=== PATIENT | female | born 1950 | race Caucasian/White ===

== ENCOUNTER → 2018-02-22 08:42 | Outpatient (CLI) | payer MEDICARE, SELFPAY ==
[2018-02-22 09:46] LABS: Absolute Lymphocyte Count 1.63 X10^3/ul (0.83-4.51); Absolute Neutrophil Count 5.2 X10^3/uL (2.0-7.7); Basophil# 0.02 X10^3/uL; Basophil% 0.3 % (0-1); Eosinophil# 0.11 X10^3/uL; Eosinophils% 1.5 % (0-5); Hematocrit 45.3 % (37-47); Hemoglobin 14.6 g/dl (12.0-15.0); Lymphocyte # 1.63 X10^3/ul (4.0); Lymphocyte % 22.2 % (19-41); Mean Corp Hgb Conc 32.2 g/gl (32-36); Mean Corpuscular Hgb 29.1 pg (27.0-32.0); Mean Corpuscular Volume 90.2 fL (81-99); Mean Platelet Vol. 11.9 fl (6.2-12.0); Monocyte# 0.32 X10^3/uL; Monocyte% 4.4 % (0-10); Neutrophil # 5.23 X10^3/uL (2.7-7.7); Neutrophil % 71.3 % (47-70); Platelet Count 186 K/mm3 (150-450); RBC Distribution Width CV 15.1 % (11.6-14.6); RBC Distribution Width SD 49.2 fl (35.1-43.9); Red Blood Count 5.02 M/mm3 (4.2-5.4); White Blood Count 7.3 K/mm3 (4.4-11.0)
[2018-02-22 09:49] LABS: POSITIVE COUNT NO; POSITIVE DIFFERENTIAL NO; POSITIVE MORPHOLOGY NO
[2018-02-22 10:13] LABS: ALB/GLOB Ratio 0.8 RATIO (0.9-2.4); AST(SGOT) 14 U/L (15-37); Alanine Aminotransfer ALT/SGPT 16 U/L (13-56); Albumin, Serum 3.3 g/dL (3.2-5.0); Alkaline Phosphatase 108 U/L (45-117); Anion Gap 6 (5-15); BUN 8 mg/dL (7-18); BUN/Creat Ratio 8.8 RATIO (10-20); Calcium,Total 9.2 mg/dL (8.5-10.1); Chloride 106 mmol/L (98-107); EST Glomerular Filtration Rate 66 mL/min (>60); Est Glom Filt Rate - Afr Amer 79 mL/min (>60); Globulin 3.9 g/dL (2.2-4.2); Glucose 99 mg/dL (74-106); Potassium 3.9 mmol/L (3.5-5.1); Protein, Total 7.2 g/dL (6.4-8.2); Sodium Level 142 mmol/L (136-145)
== END ==
PROVIDERS: Family Provider Family Medicine; PCP Family Medicine; Referring Provider Family Medicine; Visit Provider Family Medicine
DX: Z00.01 Encounter for general adult medical examination with abnormal findings (principal); I10 Essential (primary) hypertension
CPT/HCPCS: 36415; 80053; 85025

== ENCOUNTER → 2018-02-28 12:38 | Outpatient (CLI) | payer MEDICARE, SELFPAY ==
--- NOTE | 2018-02-28 12:44 | CT_ITS ---
HISTORY: CURRENT SMOKER/1PPD X 50 YR, No hx cancer,diabetes or prev chest surgeries TECHNIQUE: Helically acquired images were obtained of the chest. Low-dose technique. A radiation dose optimization technique was used for this scan. IV Contrast dosage and agent: None. COMPARISON: None FINDINGS: Low-dose technique. Bilateral widespread centrilobular emphysema with upper lobe predominance. No acute infiltrate. Left upper lobe tiny calcified granulomas. Calcified lymph nodes at the prevascular and left hilar regions compatible with old granulomatous disease. No suspicious pulmonary nodule or dominant lesion. No pleural effusion or significant pleural disease. Enlarged central pulmonary arteries compatible with pulmonary hypertension. The pulmonary artery trunk measures 3.3 cm in diameter. No pericardial effusion. CT/Low Dose CT Lung Screening IMPRESSION: 1. No acute disease or suspicious lesion. 2. Chronic lung disease with centrilobular emphysema and old, healed granulomatous disease. 3. Probable pulmonary hypertension. 4. Recommend continued surveillance with follow-up low-dose CT chest exam in 1 year. Lung RADS: 2: Benign findings. Individualized dose optimization techniques were used for this CT. at 0103 Reported and signed by: Michael Lagos MD Electronically Signed: Michael Lagos, at 1:01 EDT Tel , Service support ,
== END ==
PROVIDERS: Family Provider Family Medicine; PCP Family Medicine; Visit Provider Family Medicine
DX: Z12.2 Encounter for screening for malignant neoplasm of respiratory organs (principal); Z87.891 Personal history of nicotine dependence
CPT/HCPCS: G0297

== ENCOUNTER → 2018-03-28 12:24 | Outpatient (CLI) | payer MEDICARE, SELFPAY ==
--- NOTE | 2018-03-28 12:27 | BI_ITS ---
MAMMOGRAPHY - BILATERAL SCREENING REASON FOR EXAM: Female, 67 years old. Routine annual screening examination. PERTINENT HISTORY: Remote left stereotactic breast biopsy. TECHNIQUE: Digital bilateral breast ranjit (3D mammographic acquisition) in the CC and MLO projections. 2-D mediolateral oblique (MLO) and craniocaudad (CC) views of both breasts were obtained. CAD: Full Field Digital Mammography with Computer Added Detection was performed. COMPARISON: Comparison is made with prior study dated July 06, 2016 and May 27, 2014. FINDINGS: Breast Composition: There are scattered areas of fibroglandular density. There are no dominant masses or suspicious calcifications. A tissue clip marker is once again seen in the deep upper lateral portion of the left breast. No other significant abnormalities are identified. There has been no significant change since the prior study. BI/SCREENING MAMM (CAD), BILAT IMPRESSION: Stable bilateral screening mammogram. Yearly follow-up mammogram recommended. (A) ASSESSMENT CATEGORY: BIRADS Category 2: Benign. A letter regarding these results will be sent to the patient by the facility within 30 days. Approximately 10% of breast cancers are not detected by mammography. A normal mammogram should not delay biopsy of a clinically suspicious abnormality. [id number] Electronically Signed: Paul Lombardi MD at 13:50 EST Tel [phone], Service support ,
--- OUTSIDE RECORDS SUMMARY | 2018-05-23 11:00 | XMS RPT_ITS ---
:1950 Author Organization OHIP Care Team Providers Name Role Phone Branden Ulrich Attending Unavailable Branden Ulirch Referring Unavailable Sam Troy Primary Care Unavailable Branden Ulrich Attending Unavailable Branden Ulrich Primary Care Unavailable Branden Ulrich Attending Unavailable Branden Ulrich Referring Unavailable Branden Ulrich Primary Care Unavailable PROBLEMS PROBLEMS DATE TYPE CONDITION / CODE ATTENDING STATUS SOURCE 03/05/2018 Unknown Z12.2 - Encounter Branden Ulrich for screening for [facility] organs / Z12.2(ICD-10) 02/22/2018 Unknown Z00.01 - Encounter Branden Ulrich for general adult [facility] examination with Repository abnormal findings / Z00.01(ICD-10) 02/22/2018 Unknown I10 - Essential Branden Ulrich (primary) [facility] hypertension / Hospital I10(ICD-10) Repository PROCEDURES PROCEDURES No Procedure Records FoundRESULTS RESULTS SCREENING MAMM (CAD), Observed: 03/28/2018 Status: F Source: [place] 12:27 PM [facility] REPOSITORY [facility] Imaging Services [address] [place] [address] SCREENING MAMM (CAD), BILAT MR#: [id number] Acct: [id number] Name: JAGUAR GALAN Rep #: [id number] : 1950 F 67 From: Paul Lombardi MD PCP: Branden Ulrich DO Status: REG CLI Study: SCREENING MAMM (CAD), BILAT Date of Exam: 03/28/18 Exam# [id number] Ordering Dr: Branden Ulrich DO MAMMOGRAPHY - BILATERAL SCREENING REASON FOR EXAM: Female, 67 years old. Routine annual screening examination. PERTINENT HISTORY: Remote left stereotactic breast biopsy. TECHNIQUE: Digital bilateral breast ranjit (3D mammographic acquisition) in the CC and MLO projections. 2-D mediolateral oblique (MLO) and craniocaudad (CC) views of both breasts were obtained. CAD: Full Field Digital Mammography with Computer Added Detection was performed. COMPARISON: Comparison is made with prior study dated July 06, 2016 and May 27, 2014. FINDINGS: Breast Composition: There are scattered areas of fibroglandular density. There are no dominant masses or suspicious calcifications. A tissue clip marker is once again seen in the deep upper lateral portion of the left breast. No other significant abnormalities are identified. There has been no significant change since the prior study. BI/SCREENING MAMM (CAD), BILAT IMPRESSION: Stable bilateral screening mammogram. Yearly follow-up mammogram recommended. (A) ASSESSMENT CATEGORY: BIRADS Category 2: Benign. A letter regarding these results will be sent to the patient by the facility within 30 days. Approximately 10% of breast cancers are not detected by mammography. A normal mammogram should not delay biopsy of a clinically suspicious abnormality. [id number] Electronically Signed: Paul Lombardi MD at 13:50 EST Tel [phone], Service support , CC: Branden Ulrich DO [employer] Service Manager: Signed LOW DOSE CT LUNG Observed: 02/28/2018 Status: F Source: [place] SCREENING 12:44 PM [facility] REPOSITORY [facility] Imaging Services [address] [place] [address] Lung Screening MR#: [id number] Acct: [id number] Name: JAGUAR GALAN Rep #: [id number] : 1950 F 67 From: Michael Lagos MD PCP: Branden Ulrich DO Status: REG CLI Study: Low Dose CT Lung Screening Date of Exam: 02/28/18 Exam# [id number] Ordering Dr: Branden Ulrich DO HISTORY: CURRENT SMOKER/1PPD X 50 YR, No hx cancer,diabetes or prev chest surgeries TECHNIQUE: Helically acquired images were obtained of the chest. Low- dose technique. A radiation dose optimization technique was used for this scan. IV Contrast dosage and agent: None. COMPARISON: None FINDINGS: Low-dose technique. Bilateral widespread centrilobular emphysema with upper lobe predominance. No acute infiltrate. Left upper lobe tiny calcified granulomas. Calcified lymph nodes at the prevascular and left hilar regions compatible with old granulomatous disease. No suspicious pulmonary nodule or dominant lesion. No pleural effusion or significant pleural disease. Enlarged central pulmonary arteries compatible with pulmonary hypertension. The pulmonary artery trunk measures 3.3 cm in diameter. No pericardial effusion. CT/Low Dose CT Lung Screening IMPRESSION: 1. No acute disease or suspicious lesion. 2. Chronic lung disease with centrilobular emphysema and old, healed granulomatous disease. 3. Probable pulmonary hypertension. 4. Recommend continued surveillance with follow-up low-dose CT chest exam in 1 year. Lung RADS: 2: Benign findings. Individualized dose optimization techniques were used for this CT. at 0103 Reported and signed by: Michael Lagos MD Electronically Signed: Michael Lagos, at 1:01 EDT Tel , Service support , CC: Branden Ulrich DO [employer] Dietary Service Manager: Signed CBC W/DIFF, AUTOMATED Collected: 02/22/2018 Status: F Source: [place] 9:09 AM [facility] REPOSITORY TYPE CODE TESTS RESULT OUT OF RANGE REFERENCE UNITS LAB L100.1000 4.4-11.0 K/mm3 Normal WBC 7.3 LAB L100.1200 4.2-5.4 M/mm3 Normal RBC 5.02 LAB L100.1300 12.0-15.0 g/dl Normal HGB 14.6 LAB L100.1400 37-47 % Normal HCT 45.3 LAB L100.1500 81-99 fL Normal MCV 90.2 LAB L100.1600 27.0-32.0 pg Normal MCH 29.1 LAB L100.1700 32-36 g/gl Normal MCHC 32.2 LAB L100.1810 11.6-14.6 % High RDW CV 15.1 LAB L100.1820 35.1-43.9 fl High RDW SD 49.2 LAB L100.1900 150-450 K/mm3 Normal PLT 186 LAB L100.2000 6.2-12.0 fl Normal MPV 11.9 LAB L100.2100 47-70 % High NEUT% 71.3 LAB L100.2200 19-41 % Normal LY% 22.2 LAB L100.2300 0-10 % Normal MONO% 4.4 LAB L100.2400 0-5 % Normal EO% 1.5 LAB L100.2500 0-1 % Normal BASO% 0.3 LAB L100.2550 0.0-0.9 % Normal IM GRAN % 0.300 Result Comment: IG% - Immature Granulocytes (promyelocytes, myelocytes and metamyelocytes) > 1% indicates that a LEFT SHIFT is Present. LAB L100.2620 2.0-7.7 X10 3/uL Normal Absolute Neut 5.2 LAB L100.2720 0.83-4.51 X10 3/ul Normal Absolute Lymph 1.63 Performed By: #### L100.0100 #### [facility] [address] [place], [address] COMPREHENSIVE METABOLIC Collected: 02/22/2018 Status: F Source: [facility] 9:09 AM [facility] REPOSITORY TYPE CODE TESTS RESULT OUT OF RANGE REFERENCE UNITS LAB L501.0100 74-106 mg/dL Normal GLU 99 Result Comment: Please note revised GLUCOSE reference range effective 2017. LAB L501.1000 7-18 mg/dL Normal BUN 8 LAB L501.1100 0.55-1.02 mg/dL Normal CREAT,SERUM 0.90 Result Comment: The validity of the calculated GFR AND GFRAA in patients over 70 years has not been determined. Clinical correlation is essential. LAB L501.1110 >60 mL/min Normal EST GFR 66 Result Comment: Non- GFR Calc LAB L501.1115 >60 mL/min Normal EST GFR - AA 79 Result Comment: GFR Calc LAB L501.1300 10-20 RATIO Low BUN/CRE 8.8 LAB L501.1500 6.4-8.2 g/dL Normal T PROT 7.2 LAB L501.1800 3.2-5.0 g/dL Normal ALB 3.3 LAB L501.1950 2.2-4.2 g/dL Normal GLOB 3.9 LAB L501.2000 0.9-2.4 RATIO Low A/G 0.8 LAB L501.2200 8.5-10.1 mg/dL Normal CA 9.2 LAB L501.4100 15-37 U/L Low AST 14 LAB L501.4305 45-117 U/L Normal ALK P 108 LAB L501.4405 13-56 U/L Normal ALT 16 LAB L501.4600 0.20-1.00 mg/dL Normal T BILI 0.50 LAB L501.5300 136-145 mmol/L Normal NA 142 LAB L501.5600 3.5-5.1 mmol/L Normal K 3.9 LAB L501.5900 98-107 mmol/L Normal CL 106 LAB L501.6100 21.0-32.0 mmol/L Normal CO2 30.0 LAB L501.6200 5-15 Normal GAP 6 Performed By: #### L500.4050 #### [facility] [address] [place], [place], [address] ALLERGIES ALLERGIES No Allergies Records FoundENCOUNTERS ENCOUNTERS ADMIT/DISCHARGE ACCOUNT ADMITTING ENCOUNTER LOCATION SOURCE NUMBER CLASS 03/28/2018 [id number] [facility] 9 [facility] ing:OPBI Repository 02/28/2018 [id number] [facility] 4 [facility] ing:CT Repository 02/22/2018 [id number] [facility] 2 [facility] ing:LAB Repository PAYERS PAYERS ENCOUNTER GUARANTOR PAYER SUBSCRIBER SOURCE 03/28/2018 VERONICA Caldwell Primary JAGUAR Caldwell Dom [id number] Insurance:HUMANA [place]: Community [employer] [facility] [id number] Number: Repository [address]Jez: 330 [id number] [phone] (HP) Date:[id number] [address] [address]VI: 03/28/2018 Secondary NOT GIVENUNK [place] Insurance:SELF PAY [facility] Number: Effective Repository Date:2018-02-14 02/28/2018 VERONICA Caldwell Primary JAGUAR Caldwell [place] [id number] Insurance:HUMANA [place]: Community [employer] [facility] [id number] Number: Repository [address]Jkt: 330 [id number] [phone] (HP) Date:4704-29-89[place] [address]WP: 02/28/2018 Secondary NOT GIVENUNK [place] Insurance:SELF PAY [facility] Number: Effective Repository Date:2018-02-14 02/22/2018 VERONICA Caldwell Dom [id number] Insurance:HUMANA [place]: Community [employer] [id number] [place] Number: Repository [address]Byh: 330 [id number] [phone] (HP) Date:2375-53-56US [address] [address]TQ: 02/22/2018 Secondary NOT GIVENUNK Dom Insurance:SELF PAY [facility] Number: Effective Repository Date:2018-02-22
== END ==
PROVIDERS: Family Provider Family Medicine; PCP Family Medicine; Referring Provider Family Medicine; Visit Provider Family Medicine
DX: Z12.31 Encounter for screening mammogram for malignant neoplasm of breast (principal)
CPT/HCPCS: 77063; 77067

== ENCOUNTER → 2019-02-27 07:49 | Outpatient (CLI) | payer MEDICARE, SELFPAY ==
[2019-02-27 08:10] LABS: Absolute Lymphocyte Count 1.76 X10^3/uL (0.83-4.51); Absolute Neutrophil Count 5.3 X10^3/uL (2.0-7.7); Basophil# 0.05 X10^3/uL; Basophil% 0.6 % (0-1); Eosinophil# 0.27 X10^3/uL; Eosinophils% 3.4 % (0-5); Hematocrit 46.7 % (37-47); Lymphocyte # 1.76 X10^3/ul (4.0); Lymphocyte % 22.2 % (19-41); Mean Corp Hgb Conc 32.1 g/dL (32-36); Mean Corpuscular Hgb 28.9 pg (27.0-32.0); Mean Platelet Vol. 11.7 fl (6.2-12.0); Monocyte# 0.51 X10^3/uL; Monocyte% 6.4 % (0-10); NRBC Flagged by Analyzer 0 % (0-5); Neutrophil # 5.31 X10^3/uL (2.7-7.7); Neutrophil % 66.9 % (47-70); Platelet Count 187 K/mm3 (150-450); RBC Distribution Width CV 14.5 % (11.6-14.6); RBC Distribution Width SD 47.6 fl (35.1-43.9); Red Blood Count 5.19 M/mm3 (4.2-5.4); White Blood Count 7.9 K/mm3 (4.4-11.0)
[2019-02-27 08:46] LABS: ALB/GLOB Ratio 0.9 RATIO (0.9-2.4); AST(SGOT) 13 U/L (15-37); Alanine Aminotransfer ALT/SGPT 15 U/L (13-56); Albumin, Serum 3.4 g/dL (3.2-5.0); Alkaline Phosphatase 104 U/L (45-117); Anion Gap 6 (5-15); BUN 18 mg/dL (7-18); BUN/Creat Ratio 18.8 RATIO (10-20); Calcium,Total 8.9 mg/dL (8.5-10.1); Chloride 106 mmol/L (98-107); Cholesterol 166 mg/dL (200); Creatinine, Serum 0.96 mg/dL (0.55-1.02); EST Glomerular Filtration Rate 61 mL/min (>60); Est Glom Filt Rate - Afr Amer 74 mL/min (>60); Globulin 3.9 g/dL (2.2-4.2); Glucose 104 mg/dL (74-106); High Density Lipoprotein 46 mg/dL; Potassium 3.7 mmol/L (3.5-5.1); Protein, Total 7.3 g/dL (6.4-8.2); Sodium Level 140 mmol/L (136-145); Triglycerides 95 mg/dL; Very Low Density Lipoprotein 19 mg/dL (5-40)
== END ==
PROVIDERS: Family Provider Family Medicine; PCP Family Medicine; Referring Provider Family Medicine; Visit Provider Family Medicine
DX: I10 Essential (primary) hypertension (principal); I77.9 Disorder of arteries and arterioles, unspecified
CPT/HCPCS: 36415; 80053; 80061; 85025

== ENCOUNTER → 2020-10-05 08:43 | Outpatient (CLI) | payer MEDICARE, SELFPAY ==
--- NOTE | 2020-10-05 08:48 | VDLE_ITS ---
Reason For Study: BLE EDEMA RIGHT LEFT CFV is compressible, spontaneous, phasic, CFV is compressible, spontaneous, phasic, competent and demonstrates normal competent, and demonstrates normal augmentation. augmentation. FV is compressible, spontaneous, phasic, FV is compressible, spontaneous, phasic, competent and demonstrates normal competent and demonstrates normal augmentation. augmentation. POP V is compressible, spontaneous, phasic, POP V is compressible, spontaneous, phasic, competent and demonstrates normal competent and demonstrates normal augmentation. augmentation. T/P Trunk is compressible. T/P Trunk is compressible. PTV is compressible. PTV is compressible. RT PerV is compressible. LT PerV is compressible. SFJ is competent and measures 0.75 X 0.84 cm. SFJ is competent and measures 0.46 X 0.66 cm. GSV proximal thigh measures 0.67 X 0.72 cm. GSV proximal thigh measures 0.51 X 0.56 cm. GSV at knee measures 0.57 X 0.50 cm. GSV at knee measures 0.42 X 0.62 cm. GSV is competent throughout. GSV is competent throughout. SSV proximal calf is competent and measures SSV proximal calf is competent and measures 0.45 X 0.45 cm. 0.44 X 0.43 cm. Procedure This is a venous duplex using B-mode, color flow and spectral Doppler. Exam performed in department. The study was technically difficult. VL/Venous Duplex US - Atul Extrem Interpretation Summary Deep veins of the lower extremities are bilaterally patent and compressible seg mentally. There is no evidence of deep vein thrombosis on either side. Valvular competence appears in tact within the proximal deep venous systems bilaterally. The great saphenous veins appear bila terally patent and compressible segmentally. Sapheno-femoral junctions are bilaterally competent . Valvular competence appears to be intact segmentally within the great saphenous veins bilaterally. Small saphenous veins are patent and competent bilaterally. Ordering Physician: Branden Ulrich Referring Physician: Branden Ulrich Performed By: Donovan BLOCK RD, Kelly and Student
== END ==
PROVIDERS: PCP Family Medicine; Referring Provider Family Medicine; Visit Provider Family Medicine
DX: R60.0 Localized edema (principal); I87.2 Venous insufficiency (chronic) (peripheral)
CPT/HCPCS: 93970

== ENCOUNTER → 2021-12-28 | Outpatient (CLI) | payer MEDICARE, SELFPAY ==
[2021-12-28 12:08] LABS: Absolute Lymphocyte Count 1.39 X10^3/uL (0.83-4.51); Absolute Neutrophil Count 7.2 X10^3/uL (2.0-7.7); Basophil# 0.03 X10^3/uL; Basophil% 0.3 % (0-1); Eosinophils% 1.1 % (0-5); Hematocrit 46.7 % (37-47); Lymphocyte # 1.39 X10^3/ul (0.83-4.51); Lymphocyte % 15.2 % (19-41); Mean Corp Hgb Conc 32.1 g/dL (32-36); Mean Corpuscular Hgb 28.8 pg (27.0-32.0); Mean Corpuscular Volume 89.6 fL (81-99); Mean Platelet Vol. 12.2 fl (6.2-12.0); Monocyte# 0.37 X10^3/uL; NRBC Flagged by Analyzer 0 % (0-5); Neutrophil # 7.22 X10^3/uL (2.7-7.7); Neutrophil % 78.9 % (47-70); Platelet Count 223 K/mm3 (150-450); RBC Distribution Width CV 14.6 % (11.6-14.6); RBC Distribution Width SD 47.5 fl (35.1-43.9); Red Blood Count 5.21 M/mm3 (4.2-5.4); White Blood Count 9.2 K/mm3 (4.4-11.0)
[2021-12-28 12:14] LABS: Color, Urine Yellow (Yellow); Glucose, Dipstick Normal (Normal); Ketone-Dipstick Negative (Negative); Leukocyte Esterase-Dipstick Negative /ul (Negative); Nitrite-Dipstick Negative (Negative); Occult Blood-Urine Negative /ul (Negative); Protein-Dipstick Negative (Negative); Urine Bilirubin Dipstick Negative (Negative); Urine Clarity Sl. Cloudy (Clear); Urine Urobilinogen Normal (Normal); Urine pH 6.5 (5.0 - 8.0)
[2021-12-28 12:28] LABS: ALB/GLOB Ratio 0.7 RATIO (0.9-2.4); AST(SGOT) 12 U/L (15-37); Alanine Aminotransfer ALT/SGPT 16 U/L (13-56); Albumin, Serum 3.2 g/dL (3.2-5.0); Alkaline Phosphatase 105 U/L (45-117); Anion Gap 7 (5-15); BUN 11 mg/dL (7-18); BUN/Creat Ratio 10.4 RATIO (10-20); Chloride 105 mmol/L (98-107); Cholesterol 157 mg/dL (200); Creatinine, Serum 1.06 mg/dL (0.55-1.02); EST Glomerular Filtration Rate 54 mL/min (>60); Est Glom Filt Rate - Afr Amer 65 mL/min (>60); Globulin 4.4 g/dL (2.2-4.2); Glucose 109 mg/dL (74-106); High Density Lipoprotein 49 mg/dL; Potassium 3.6 mmol/L (3.5-5.1); Protein, Total 7.6 g/dL (6.4-8.2); Sodium Level 142 mmol/L (136-145); Triglycerides 98 mg/dL; Very Low Density Lipoprotein 20 mg/dL (5-40)
[2021-12-28 12:35] LABS: Hemoglobin A1c 5.9 % (3.8-5.6)
[2021-12-28 12:41] LABS: BNP,B-Type NATRIURETIC PEPTIDE 39.3 pg/mL (0-100)
== END | disposition home or self-care (01) ==
LOC: MTLAB 09:24
PROVIDERS: PCP Family Medicine; Referring Provider Family Medicine; Visit Provider Family Medicine
DX: R60.9 Edema, unspecified (principal); I10 Essential (primary) hypertension; I65.29 Occlusion and stenosis of unspecified carotid artery; R73.01 Impaired fasting glucose; I87.2 Venous insufficiency (chronic) (peripheral)
CPT/HCPCS: 36415; 80053; 80061; 81002; 83036; 83880; 84443; 85025

== ENCOUNTER 2022-01-08 10:46 | Outpatient (RCR) | payer MEDICARE, SELFPAY ==
--- NOTE | 2022-01-08 17:37 | HP.OTEVAL ---
Patient's Visit Information JAGUAR GALAN is a 71 year old F, referred to Occupational Therapy by Dr. Branden Ulrich DO, with a diagnosis of LE lymphedema. Date of Evaluation: 01/08/22 Occupational Therapist: Eloisa Guillaume, OTR/Javi, CHT - Subjective This 71 year old female was seen for OT eval with dx of LE lymphedma- pt states she has had a long standing issue with leg swelling- has complicated medical hx of emphysema and can not lay flat or almost has a panic attack if she is laying flat so she avoids doing so- sleeps up in chair with legs on foot rest-. pt just initiated a water pill- so swelling is getting better. pt has dried skin and weeping- this has stopped- dtr is putting Vaseline on pts legs to get the skin to soften and moisturize pts skin. pt and pts family would like to know what they can do to mtg. pts leg swelling. They arrives with Jobst 15-20mmHg. compression socks. they have not put them on yet. - not sure they will fit or she should. - Lymphedema (Circumferential Measure) Mid-foot: right 22.5 left 23 Ankle: right 31cm left 31 Lower calf: right 37 left 37 Largest calf: right 54 left 51cm Below knee: right 41cm left 39cm - Lower Limb Functional Index Lower Extremity Functional Score: 40 - Goals Demonstrate a 20% reduction in edema by d/c: Yes Demonstrate adequate knowledge of self-massage by 2nd week: Yes Demonstrate adequate knowledge skin care/prec by 2nd week: Yes Demonstrate adequate knowledge therapeutic exercises by d/c: Yes Select approp compression garment w/donning/care/wear by d/c: Yes Voice need to replace compression garment every 4-6mo by dc: Yes Goal:: use of Farrow wraps to decrease limb size followed with compression socks use daily. 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 today pt and family were receptive on information provided and agreed to look into compression alternatives (farrow wraps) to assist in LE edema mtg. followed with compression sock use once limb size decreases. Due to long hx of swelling and trial of different compression socks with little or no successful mtg. pt would benefit from home vaso pneumatic device for life long mtg of LE swelling- pt demo understanding and agrees to POC. [ End ] Rehabilitation Potential: Questionable - Anticipated Interventions Education re Diagnosis, Manual Lymph Drainage, Education re Life-long lymphedema Management, Education re Skin Care and Precautions, Education re Self Massage Techniques, Education re Correct Donning Tech,Care&Wearing Sched Comp Garments, Caregiver Training, Home Program - Visit Plan TEXT: Thank you for the opportunity to evaluate your patient. For Medicare and Medicare HMO plans, please review the plan of care and approve it. It will need to be FAXED BACK to us at [phone] for Medicare purposes. Please let me know if there are questions or concerns regarding this plan of care. Physician Signature: Date:
--- NOTE | 2022-04-25 10:08 | HP.OT.NRP ---
JAGUAR GALAN was seen in my office for initial evaluation on 01/08/22. The following Plan of Care was established for this patient: Anticipated Interventions: Education re Diagnosis, Manual Lymph Drainage, Education re Life-long lymphedema Management, Education re Skin Care and Precautions, Education re Self Massage Techniques, Education re Correct Donning Tech,Care&Wearing Sched Comp Garments, Caregiver Training, Home Program This patient was last seen in our office 01/08/22. Pertinent comments regarding their Occupational therapy will appear below: pt was seen for eval only. no further apts have been scheduled and due to time lapse in services pt d/c. At this point I will be discontinuing this patient from occupational therapy. I would be happy to see this patient again in the future if found appropriate by the physician. Thank you! Eloisa Guillaume, OTR/L, CHT
== END 2022-01-08 19:00 | disposition home or self-care (01) ==
LOC: OT 10:46
PROVIDERS: PCP Family Medicine; Referring Provider Family Medicine; Visit Provider Family Medicine
DX: I89.0 Lymphedema, not elsewhere classified (principal)
CPT/HCPCS: 97166; 97530

== ENCOUNTER → 2022-01-08 | Outpatient (CLI) | payer MEDICARE, SELFPAY ==
--- NOTE | 2022-01-08 13:48 | CT_ITS ---
STUDY: LOW DOSE CT LUNG CANCER SCREENING REASON FOR EXAM: Female, 71 years old. Screening. Patient smoked 1 pack per day for 50 years. RADIATION DOSAGE (If Supplied By Facility): CTDIvol = ( 4.02 ) mGy, DLP = ( 139.94 ) mGycm TECHNIQUE: No contrast was administered. Low dose technique was utilized (average mAS-38 and kVp 120). 1.25 mm axial source images with a slice interval of 1.25-mm were reconstructed in lung windows. 2.5 mm axial source images with a slice interval of 2.5-mm were reconstructed in lung windows. 5.0 mm axial source images with a slice interval of 5.0-mm were reconstructed in soft tissue windows. COMPARISON: Comparison is made with prior examination dated 02/29/2008. NODULES: No suspicious nodules are seen. Emphysema: Mild degree of hyperinflation and emphysematous changes. Endobronchial lesion: None Aorta: Mild degree of calcific plaques at the level of the aortic arch. CORONARY ARTERIES: Coronary artery calcification is seen. Heart: Unremarkable Pulmonary artery: Unremarkable Mediastinal nodes: Calcified left hilar lymph nodes. Other chest and abdominal findings: CT/Low Dose CT Lung Screening IMPRESSION: Lung-RADS category 2 - Continue annual screening with LDCT in 12 months. IMPORTANT NOTES FOR USE: ACR Lung-RADS Version 1.1 Assessment Categories Release Date: 2018 Category: Coded 0-4 bases on nodule(s) with highest degree of suspicion. Negative screen is defined as categories 1 and 2; a positive screen is defined as categories 3 and 4. Category 3 and 4A nodules that are unchanged on interval CT should be coded as category 2, and individuals returned to screening in 12 months. Category 4X: Category 3 or 4 nodules with additional imaging findings that increase the suspicion of lung cancer, such as spiculation, GGN that doubles in size in 1 year, enlarged lymph notes, etc. Category Modifiers: S (significant finding unrelated to lung cancer) Electronically Signed: Paul Lombardi MD at 15:37 EDT ,
== END | disposition home or self-care (01) ==
LOC: CT 13:46
PROVIDERS: PCP Family Medicine; Referring Provider Family Medicine; Visit Provider Family Medicine
DX: Z87.891 Personal history of nicotine dependence (principal); Z12.2 Encounter for screening for malignant neoplasm of respiratory organs
CPT/HCPCS: 71271

== ENCOUNTER → 2022-02-19 | Outpatient (CLI) | payer MEDICARE, SELFPAY ==
[2022-02-19 17:53] LABS: Anion Gap 7 (5-15); BUN 22 mg/dL (7-18); BUN/Creat Ratio 16.4 RATIO (10-20); Calcium,Total 9.2 mg/dL (8.5-10.1); Chloride 103 mmol/L (98-107); Creatinine, Serum 1.34 mg/dL (0.55-1.02); EST Glomerular Filtration Rate 41 mL/min (>60); Est Glom Filt Rate - Afr Amer 50 mL/min (>60); Glucose 130 mg/dL (74-106); Potassium 3.3 mmol/L (3.5-5.1); Sodium Level 139 mmol/L (136-145)
== END | disposition home or self-care (01) ==
LOC: BFHLAB 13:53
PROVIDERS: PCP Family Medicine; Visit Provider Family Medicine
DX: I10 Essential (primary) hypertension (principal)
CPT/HCPCS: 36415; 80048

== ENCOUNTER → 2022-05-22 | Outpatient (CLI) | payer MEDICARE, SELFPAY ==
[2022-05-22 13:02] LABS: ALB/GLOB Ratio 0.8 RATIO (0.9-2.4); AST(SGOT) 13 U/L (15-37); Alanine Aminotransfer ALT/SGPT 17 U/L (13-56); Albumin, Serum 3.3 g/dL (3.2-5.0); Alkaline Phosphatase 96 U/L (45-117); Anion Gap 5 (5-15); BUN 26 mg/dL (7-18); BUN/Creat Ratio 15.4 RATIO (10-20); Calcium,Total 9.3 mg/dL (8.5-10.1); Chloride 106 mmol/L (98-107); Creatinine, Serum 1.69 mg/dL (0.55-1.02); EST Glomerular Filtration Rate 31 mL/min (>60); Est Glom Filt Rate - Afr Amer 38 mL/min (>60); Globulin 4.1 g/dL (2.2-4.2); Glucose 118 mg/dL (74-106); Potassium 4.3 mmol/L (3.5-5.1); Protein, Total 7.4 g/dL (6.4-8.2); Sodium Level 140 mmol/L (136-145)
== END | disposition home or self-care (01) ==
LOC: BFHLAB 09:39
PROVIDERS: PCP Family Medicine; Visit Provider Family Medicine
DX: I10 Essential (primary) hypertension (principal)
CPT/HCPCS: 36415; 80053

== ENCOUNTER → 2022-11-19 | Outpatient (CLI) | payer MEDICARE, SELFPAY ==
[2022-11-19 13:36] LABS: Hemoglobin A1c 5.8 % (3.8-5.6)
[2022-11-19 13:51] LABS: ALB/GLOB Ratio 0.8 RATIO (0.9-2.4); AST(SGOT) 11 U/L (15-37); Alanine Aminotransfer ALT/SGPT 17 U/L (13-56); Albumin, Serum 3.3 g/dL (3.2-5.0); Alkaline Phosphatase 105 U/L (45-117); Anion Gap 5 (5-15); BUN 26 mg/dL (7-18); BUN/Creat Ratio 15.2 RATIO (10-20); Calcium,Total 8.9 mg/dL (8.5-10.1); Chloride 106 mmol/L (98-107); Cholesterol 122 mg/dL (200); Creatinine, Serum 1.71 mg/dL (0.55-1.02); EST Glomerular Filtration Rate 31 mL/min (>60); Est Glom Filt Rate - Afr Amer 38 mL/min (>60); Globulin 4.1 g/dL (2.2-4.2); Glucose 127 mg/dL (74-106); High Density Lipoprotein 50 mg/dL; Potassium 3.9 mmol/L (3.5-5.1); Protein, Total 7.4 g/dL (6.4-8.2); Sodium Level 139 mmol/L (136-145); Triglycerides 103 mg/dL; Very Low Density Lipoprotein 21 mg/dL (5-40)
== END | disposition home or self-care (01) ==
PROVIDERS: PCP Family Medicine; Referring Provider Family Medicine; Visit Provider Family Medicine
DX: I10 Essential (primary) hypertension (principal); R73.01 Impaired fasting glucose
CPT/HCPCS: 36415; 80053; 80061; 83036

== ENCOUNTER → 2023-02-12 | Outpatient (CLI) | payer MEDICARE, SELFPAY ==
[2023-02-12 13:20] LABS: Anion Gap 6 (5-15); BUN 39 mg/dL (7-18); Calcium,Total 9.3 mg/dL (8.5-10.1); Chloride 105 mmol/L (98-107); Creatinine, Serum 2.17 mg/dL (0.55-1.02); EST Glomerular Filtration Rate 24 mL/min (>60); Est Glom Filt Rate - Afr Amer 29 mL/min (>60); Glucose 129 mg/dL (74-106); Magnesium 2.5 mg/dL (1.6-2.6); Potassium 4.1 mmol/L (3.5-5.1); Sodium Level 139 mmol/L (136-145)
== END | disposition home or self-care (01) ==
LOC: BFHLAB 09:02
PROVIDERS: PCP Family Medicine; Visit Provider Family Medicine
DX: N18.32 Chronic kidney disease, stage 3b (principal); Z51.81 Encounter for therapeutic drug level monitoring
CPT/HCPCS: 36415; 80048; 83735

== ENCOUNTER → 2023-02-20 | Outpatient (CLI) | payer MEDICARE, SELFPAY ==
--- NOTE | 2023-02-20 10:40 | US_ITS ---
STUDY: SUPERFICIAL ULTRASOUND - SOFT TISSUE NECK REASON FOR EXAM: Female, 72 years old. SM MASS POSTERIOR TO ANGLE OF RT ANDIBLE; SMOKER TECHNIQUE: A superficial ultrasound was performed with real-time and static baer-scale imaging. COMPARISON: None. FINDINGS: Multiple longitudinal and transverse ultrasound images of the right side of the neck confirm a 2 cm oval hypoechoic mass near the right submandibular gland which may represent tumor or lymphadenopathy. Correlation with CT of the neck with contrast is recommended. US/Head/Neck Soft Tissue IMPRESSION: Suspect tumor or lymphadenopathy in correlation with CT of the neck with contrast is recommended. Electronically Signed: Mahin Cutler MD at 23:26 EDT ,
== END | disposition home or self-care (01) ==
LOC: US 10:38
PROVIDERS: PCP Family Medicine; Referring Provider Family Medicine; Visit Provider Family Medicine
DX: R22.1 Localized swelling, mass and lump, neck (principal)
CPT/HCPCS: 76536

== ENCOUNTER → 2023-03-13 | Outpatient (CLI) | payer MEDICARE, SELFPAY ==
[2023-03-13 12:47] LABS: Anion Gap 6 (5-15); BUN 21 mg/dL (7-18); BUN/Creat Ratio 14.1 RATIO (10-20); Calcium,Total 9.5 mg/dL (8.5-10.1); Chloride 103 mmol/L (98-107); Creatinine, Serum 1.49 mg/dL (0.55-1.02); EST Glomerular Filtration Rate 36 mL/min (>60); Est Glom Filt Rate - Afr Amer 44 mL/min (>60); Glucose 121 mg/dL (74-106); Potassium 3.3 mmol/L (3.5-5.1); Sodium Level 141 mmol/L (136-145)
== END | disposition home or self-care (01) ==
LOC: BFHLAB 10:08
PROVIDERS: PCP Family Medicine; Visit Provider Family Medicine
DX: N18.32 Chronic kidney disease, stage 3b (principal)
CPT/HCPCS: 36415; 80048

== ENCOUNTER → 2023-03-14 | Outpatient (CLI) | payer MEDICARE, SELFPAY ==
--- NOTE | 2023-03-14 | ASPOS_PTH ---
PATIENT: JAGUAR GALAN LOC: LAB U#:[id number] AGE/SX: 72/F ROOM: RE03/14/[address]: Dr. Billy Robertson MD : 1950 BED: DIS: 03/14/2023 SPEC #: [id number] RECD: 03/14/23 12:33 STATUS: ROSALVA REAlla #: [id number] JANAY: 03/14/23 00:[address]: Billy Robertson DEPT: CYTOLOGY RECD BY: Justine Narvaez ENTERED: 03/14/23 12:33 SP TYPE: ASP HERE OTHR DR: Dr. Branden Ulrich, DO Tissues: Parotid gland, NOS Procedures: Surgery Specimen Level IV Cytology Other Fine Needle Asp on Site HEADER OPERATION: Fine needle aspiration right parotid mass PRE-OP DIAGNOSIS: Right parotid mass TISSUE SUBMITTED: Right parotid mass DIAGNOSIS CYTOLOGY Fine needle aspiration, right parotid mass (smears and cell block): Oncocytic neoplasm consistent with Warthin tumor. AM:leidy 03/15/2023 COMMENT A fine needle aspiration was performed and the specimen is evaluated at the time of FNA by Dr. Todd. Immediate Evaluation = Oncocytic neoplasm consistent with Warthin tumor. CYTOLOGY STUDY Slides are reviewed. CYTOLOGY GROSS Received is 0.1 ml of red-cruz fluid labeled with the patient's name, and designated right parotid mass. Two imprints are made from the submitted fluid and the rest is added to CytoLyt for cell block preparation. Submitted for cytology study. / AM:leidy 03/14/2023 TC:5 CPT: 03615, 48272, 67814, 98531
== END | disposition home or self-care (01) ==
LOC: LAB 09:18
PROVIDERS: PCP Family Medicine; Referring Provider Otolaryngology; Visit Provider Otolaryngology
DX: D11.0 Benign neoplasm of parotid gland (principal)
CPT/HCPCS: 10021; 88161; 88305

== ENCOUNTER → 2023-05-07 | Outpatient (CLI) | payer MEDICARE, SELFPAY ==
[2023-05-07 12:31] LABS: Anion Gap 5 (5-15); BUN 30 mg/dL (7-18); BUN/Creat Ratio 20.5 RATIO (10-20); Calcium,Total 9.2 mg/dL (8.5-10.1); Chloride 105 mmol/L (98-107); Creatinine, Serum 1.46 mg/dL (0.55-1.02); EST Glomerular Filtration Rate 37 mL/min (>60); Est Glom Filt Rate - Afr Amer 45 mL/min (>60); Glucose 141 mg/dL (74-106); Potassium 4.2 mmol/L (3.5-5.1); Sodium Level 141 mmol/L (136-145)
[2023-05-07 13:41] LABS: PTHIN 99.6 pg/mL (18.4-80.1)
[2023-05-07 13:55] LABS: Vitamin D,25 Hydroxy 17.9 ng/mL
== END | disposition home or self-care (01) ==
LOC: BFHLAB 09:13
PROVIDERS: PCP Family Medicine; Visit Provider Family Medicine
DX: I12.9 Hypertensive chronic kidney disease with stage 1 through stage 4 chronic kidney disease, or unspecified chronic kidney disease (principal); N18.32 Chronic kidney disease, stage 3b
CPT/HCPCS: 36415; 80048; 82306; 83970

== ENCOUNTER 2023-10-25 09:30 | Outpatient (RCR) | payer MEDICARE, SELFPAY ==
[2023-10-11 09:17] VITALS: BP 125/60; PULSE 63; RESP 18; BMI 43.1
--- NOTE | 2023-10-11 14:09 | PCM.WC.HP ---
History of Present Illness Date of Service: 10/11/23 Chief Complaint: lymphedema and ulcers of lower legs bilaterally History of Wound: Briseyda is a pleasant 73 yo woman that presents to the wound healing center today for evaluation and treatment of bilateral lower extremity lymphedema and ulcers. She was referred by her PCP, Dr. Ulrich. She has worsening lymphedema, which has been chronic and long-standing for several years, she is typically maintained on dual diuretic therapy including triamterene hydrochlorothiazide as well as furosemide with potassium. She reports of worsening of edema with seeping of fluid from lower legs and dry, hard skin which started in the beginning of August. She originally had been self-treating with Neosporin and Vaseline, washing with warm water. She was seen by her PCP on 09/24 and treated with UNNA boots weekly and prescribed Cephalexin 500 mg x 7 days for cellulitis until being seen today. She has difficulty with mobility due to joint pain, particularly in the knee, and breathlessness after short walks. Has been using GARRETT bandages for compression for legs. She has had ulcers on right lower lateral leg and back of leg and left lateral lower leg since mid-August. These have improved over the last several weeks with UNNA boot treatment. She had seen OT approx. 2 years ago and was fitted with compression stockings but is unable to don these due to osteoarthritis and chronic back pain. She was also in the process of being prescribed lymphedema pumps but never received these devices. She has no current signs of infection. She denies fever and chills. [facility] Medical History Warthin tumor Obesity, morbid Tobacco abuse Claustrophobia Depression, major, recurrent, in partial remission BAO (obstructive sleep apnea) Pulmonary HTN COPD (chronic obstructive pulmonary disease) Emphysema lung Chronic kidney disease, stage 3b HTN (hypertension) Carotid artery disease CAD (coronary artery disease) Home Medications ?Medication ?Instructions ?Recorded ?Last Taken ?Type albuterol sulfate 90 mcg/actuation inhalation 10/11/23 Unknown History aerosol inhaler amlodipine 2.5 mg tablet 2.5 mg PO DAILY 10/11/23 Unknown History atenolol 50 mg tablet mg PO 10/11/23 Unknown History bupropion HCl 150 mg 24 hr tablet, 150 mg PO 10/11/23 Unknown History extended release bupropion HCl 300 mg 24 hr tablet, 300 mg PO 10/11/23 Unknown History extended release furosemide 40 mg tablet mg PO 10/11/23 Unknown History lisinopril 40 mg tablet mg PO 10/11/23 Unknown History potassium chloride 20 mEq 20 meq PO BID 10/11/23 Unknown History tablet,extended release(part/cryst) rosuvastatin 5 mg tablet 5 mg PO DAILY 10/11/23 Unknown History triamterene 37.5 1 cap PO DAILY 10/11/23 Unknown History mg-hydrochlorothiazide 25 mg capsule Allergy/AdvReac Type Severity Reaction Status Date / Time No Known Allergies Allergy Verified 10/11/23 14:49 Family History Mother COPD (chronic obstructive pulmonary disease) Hypertension Diabetes Father Hypertension Parkinsonism Surgical History (Updated 10/11/23 @ 14:[address] Alma Frazier DO) History of breast biopsy Hx of cataract surgery Social History (Updated 10/11/23 @ 14:[address] Alma Frazier DO) Smoking Status: Current every day smoker substance use type: does not use frequency: does not exercise ROS Constitutional Constitutional: Reports daytime sleepiness, fatigue and snoring; Denies chills or fever(s) Eyes Eyes: Denies blurry vision, change in vision or loss of vision ENT HEENT: Denies dysphagia, hearing loss or sore throat Cardiovascular Cardiovascular: Reports dyspnea on exertion, edema and leg edema; Denies chest pain or palpitations Respiratory/Chest Respiratory/Chest: Denies dry cough, dyspnea, dyspnea on exertion, productive cough or wheezing Gastrointestinal Gastrointestinal: Denies diarrhea, nausea or vomiting Genitourinary Genitourinary: Denies dysuria or polyuria Musculoskeletal Musculoskeletal: Reports arthralgias, back pain and joint stiffness; Denies muscle weakness Integumentary Integumentary: Reports erythema and skin ulcer Neurologic Neurologic: Denies dizziness, memory loss or weakness Psychiatric Psychiatric: Denies homicidal ideation or suicidal ideation Endocrine Endocrinology: Denies polydipsia, polyphagia or polyuria Hematologic/Lymphatic Hematologic/Lymphatic: Denies easy bleeding or easy bruising Allergic/Immunologic Allergic/Immunologic: Denies throat swelling, tongue swelling or urticaria Vital Signs Vital Signs Vital Signs: 10/11/23 09:17 Pulse Rate 63 Respiratory Rate 18 Blood Pressure 125/60 H Blood Pressure Mean 81 Blood Pressure Source Monitor Blood Pressure Position Semi-Fowlers Blood Pressure Location Left Arm Oxygen Delivery Method Room Air Weight Weight: 107.048 kg Body Mass Index (BMI) 43.1 Physical Exam Const alert, oriented x3 and no apparent distress General Appearance: cooperative and comfortable Nutritional Appearance: obese HEENT normocephalic and head/scalp atraumatic Resp normal respiratory effort Effort and Inspection: able to speak in complete sentences Cardio regular rate and regular rhythm Extremity General Extremity: edema bilateral lower extremity Details: severe Skin General Skin Exam: crusts, hypertrophy, venous stasis, dermatitis and other nodular appearance of skin c/w severe lymphedema Wounds: wounds noted Wound Narrative: as in clinical panel Psych mental status grossly normal, thought process normal, cooperative and affect normal Debridement Note Debridement Note Wound debrided: Right lateral lower leg 3.5 cm x 3.5 cm x 0.1 cm Laterality: Right No debridement was completed: No debridement was completed today Post-Debridement Measurements and Additional Note: Post-Debridement Measurements/Treatment - Nurse 1 - General Ulcer Assessment Start: 10/11/23 09:17 Freq: Status: Active Protocol: [email or web address] Activity Type Activity Date Activity User E-sign Co-sign Detail Recorded Client Recorded Date Recorded By Document 10/11/23 09:17 KW d 10/11/23 09:33 KW 10/11/23 09:17 - Today's Visit Information Type of service Initial Visit Arrival Mode Ambulatory Patient Identification Verified (Name & Yes ) Height and Weight Height 5 ft 2 in Weight 107.048 kg Weight in Pounds 236.0 lbs Weight Measurement Method Estimated by Patient Body Mass Index (BMI) 43.1 BMI Classification Obese BSA - Yvon 2.05 Vital Signs Pulse Rate (60-100) 63 Pulse Location Monitor Respiratory Rate (12-18) 18 Respiratory rate source Observation Oxygen Delivery Method Room Air Blood Pressure (90/60-120/80) 125/60 H Blood Pressure Mean 81 Source Monitor Position Semi-Fowlers Blood Pressure Location Left Arm History Since Last Visit- (Skip if this is Patient's initial visit) Left Footwear Regular Shoe Right Footwear Regular Shoe Pain Scale: 0-10 Numeric Is Patient Pain Free? Yes Lower Extremity Assessment/ Foot Assessment/ Toe Nail Assessment Right -Posterior Tibial Palpable No -Posterior Tibial Doppler Inaudible -Dorsalis Pedis Palpable Yes -Dorsalis Pedis Doppler Monophasic -Extremity Color Hemosiderin -Hair Growth on Legs Yes -Hair Growth on Toes No -Temperature of Extremity Warm -Capillary Refill Greater than 3 Seconds -Dependent Rubor No -Blanched when Elevated No -Lipodermatosclerosis No -Other Deformity No -Prior Foot Ulcer No -Charcot Joint No -Prior Amputation No -Thick Yes -Discolored No -Deformed Yes -Improper Length & Hygeine Yes Left -Posterior Tibial Palpable No -Posterior Tibial Doppler Inaudible -Dorsalis Pedis Palpable Yes -Dorsalis Pedis Doppler Monophasic -Extremity Color Hemosiderin -Hair Growth on Legs Yes -Hair Growth on Toes No -Temperature of Extremity Warm -Capillary Refill Greater than 3 Seconds -Dependent Rubor No -Blanched when Elevated No -Lipodermatosclerosis No -Thick Yes -Discolored No -Deformed Yes -Improper Length & Hygeine Yes Neuropathy Assessment Feet - Top Side and Bottom <Entered> (a) Communication Assessment Preferred language Pakistani Engineer Specialist Required No Able to Read Yes Able to Write Yes Communication Tools None Right Hearing Abillity Normal Left Hearing Abillity Normal Visual Assistive Devices None Functional Assessment Recent Decline in Ability to Perform Denies Any Declines Culture/Sabianist/[employer] Cultural/Sabianist Needs that may affect No Treatment Plan Would you allow our hospital windows admin to No meet you for the purpose of spiritual/ emotional support? [employer] to contact place of zoroastrian No Teaching: Wound Center *Welcome to the Wound Center -Person Taught Patient -Teaching Method Discussion -Response to teaching Verbalize understanding (a) 1 - + THROUGHOUT WC - Nurse 1 - General Ulcer Measurement Start: 10/11/23 09:17 Freq: Status: Active Protocol: Activity Type Activity Date Activity User E-sign Co-sign Detail Recorded Client Recorded Date Recorded By Document 10/11/23 09:17 KW d 10/11/23 09:33 KW 10/11/23 09:17 Wound Center Nurse 1 2. LLE lateral -Combined with other wound No -Current Size (cm) - Length 0.1 -Current Size (cm) - Width 0.1 -Current Size (cm) - Depth 0.1 -Total Square Cm 0.01 -Photo Taken Yes -Tunneling No -Undermining/Tunneling No -Circular Undermining No -Exudate Amt Large -Exudate Type Serosanguineous -Wound Margin Distinct, Outline Attached -Granulation Amt Medium (34-66%) -Granulation Quality [place] -Slough/Fibrin Yes -Necrosis Amt Medium (34-66%) -Necrotic Tissue Type Adherent Slough -Structure Exposed N/A -Texture (Lily-wound Skin Appearance) Assessed -Moisture (Lily-wound Skin Appearance) Assessed -Color (Lily-wound Skin Appearance) Hemosiderin Staining -Temperature (Lily-wound Skin No Abnormality Appearance) (Pt Warm) -Tenderness on Palpation (Lily-wound No Skin Appearance) -Ulcer Cleansing Wound Cleanser -Foul Odor after Cleansing No -Anesthetic Used 5% Lidocaine Gel 1. RLE lateral -Combined with other wound No -Current Size (cm) - Length 2.5 -Current Size (cm) - Width 2.5 -Current Size (cm) - Depth 0.1 -Total Square Cm 6.25 -Photo Taken Yes -Tunneling No -Undermining/Tunneling No -Circular Undermining No -Exudate Amt Medium -Exudate Type Serosanguineous -Wound Margin Distinct, Outline Attached -Granulation Amt Medium (34-66%) -Granulation Quality [place] -Slough/Fibrin Yes -Necrosis Amt Medium (34-66%) -Necrotic Tissue Type Adherent Slough -Structure Exposed N/A -Texture (Lily-wound Skin Appearance) Assessed -Moisture (Lily-wound Skin Appearance) Assessed -Color (Lily-wound Skin Appearance) Assessed, Hemosiderin Staining -Temperature (Lily-wound Skin No Abnormality Appearance) (Pt Warm) -Tenderness on Palpation (Lily-wound No Skin Appearance) -Ulcer Cleansing Wound Cleanser -Foul Odor after Cleansing No -Anesthetic Used 5% Lidocaine Gel Lower Limb Edema Present Yes Right Calf (cm) 51.6 Right Ankle (cm) 32 Left Calf (cm) 51 Left Ankle (cm) 31.5 WC - Nurse 2 - General Ulcer CM Notes Start: 10/11/23 09:17 Freq: Status: Active Protocol: Activity Type Activity Date Activity User E-sign Co-sign Detail Recorded Client Recorded Date Recorded By Document 10/11/23 09:46 GM 10/11/23 10:13 GM 10/11/23 09:46 Wound Center Nurse 2 2. LLE lateral -Time 09:47 -Correct Patient Yes -Correct Side, Site, Position Yes 1. RLE lateral -Time 09:47 -Correct Patient Yes -Correct Side, Site, Position Yes Pain Scale: 0-10 Numeric Is Patient Pain Free? Yes - Nurse 3 - General Ulcer D/C NN Start: 10/11/23 09:17 Freq: Status: Active Protocol: Activity Type Activity Date Activity User E-sign Co-sign Detail Recorded Client Recorded Date Recorded By Document 10/11/23 10:39 KW d 10/11/23 10:40 KW 10/11/23 10:39 Wound Care Center Nurse 3 2. LLE lateral -Primary Dressing Applied Aquacel Extra -Primary Dressing Covered/Secured with Dry Gauze & Roll Gauze, Secured with Tape -Aquacel Extra 1 1. RLE lateral -Primary Dressing Covered/Secured with Dry Gauze & Roll Gauze, Secured with Tape BLE -Multi-Layered Wrap Application Multi-Layer Comp - Bilat ($ ) Pain Scale: 0-10 Numeric Is Patient Pain Free? Yes WC - Visit Discharge Discharge Condition Stable Ambulatory Status Ambulatory Transportation Private Auto Medication Reconcilliation completed & No provided to patient/care provider Clinical Summary of Care Provided Yes Additional Wound Wound debrided: Left lateral lower leg 1.7 x 1.3 x 0.1 cm Laterality: Left Operative Diagnosis: no debridement completed today Assessment/Plan Assessment/Plan (1) Lymphedema: CODE(S): I89.0 - Lymphedema, not elsewhere classified (2) Venous ulcers of both lower extremities: CODE(S): I83.019 - Varicose veins of right lower extremity with ulcer of unspecified site; I83.029 - Varicose veins of left lower extremity with ulcer of unspecified site; L97.919 - Non-pressure chronic ulcer of unspecified part of right lower leg with unspecified severity; L97.929 - Non-pressure chronic ulcer of unspecified part of left lower leg with unspecified severity (3) Venous insufficiency of both lower extremities: CODE(S): I87.2 - Venous insufficiency (chronic) (peripheral) (4) Osteoarthritis of spine at multiple levels: CODE(S): M47.819 - Spondylosis without myelopathy or radiculopathy, site unspecified PLAN: Plan Evaluation performed today in clinic as annotated above. At home wound-care instructions: No debridement was performed due to high copay and minimal devitalized tissue/slough. 3M compression wraps were placed with Aquacel Extra over the ulcers to treat the ulcers and improve edema. Keep dressing clean and dry. She would also benefit from compression wraps such as Circaid or [place] wraps for continued management of her lymphedema as well as lymphedema pumps for prevention of ulcers and progression of her lymphedema. She is unable to don traditional compression stockings due to osteoarthritis and chronic back pain and is unable to reach her ankles. Off-loading: The patient was instructed to avoid pressure and friction on the affected areas. Reposition every 2 hours at minimum. Avoid prolonged standing and/or dangling of legs. When seated, feet should be elevated at chest level. Frequent ambulation is encouraged. Diet: Patient encouraged to increase protein intake while taking caution to avoid high carbohydrate and/or sugar intake. Labs/cultures/imaging: Follow-up: Return in 1 week for wound care follow up. Return sooner or report to the emergency room should symptoms worsen, or new symptoms arise. Note: [employer] speech recognition inventory representative software was used to create portions of this document. Sound-alike and misspelled words, as well as other inventory representative errors may be contained in the documentation.
[2023-10-18 10:03] VITALS: BP 141/67; PULSE 62; RESP 18; TEMP 35.7; BMI 43.1
--- NOTE | 2023-10-18 11:27 | WC ---
10/11/2023 RT LATERAL LE
--- NOTE | 2023-10-18 12:15 | PCM.WC.PN ---
History of Present Illness Date of Service: 10/18/23 Chief Complaint: lymphedema and ulcers of lower legs bilaterally History of Wound: Briseyda is a pleasant 73 yo woman that presents to the wound healing center today for evaluation and treatment of bilateral lower extremity lymphedema and ulcers. She was referred by her PCP, Dr. Ulrich. She has worsening lymphedema, which has been chronic and long-standing for several years, she is typically maintained on dual diuretic therapy including triamterene hydrochlorothiazide as well as furosemide with potassium. She reports of worsening of edema with seeping of fluid from lower legs and dry, hard skin which started in the beginning of August. She originally had been self-treating with Neosporin and Vaseline, washing with warm water. She was seen by her PCP on 09/24 and treated with UNNA boots weekly and prescribed Cephalexin 500 mg x 7 days for cellulitis until being seen today. She has difficulty with mobility due to joint pain, particularly in the knee, and breathlessness after short walks. Has been using GARRETT bandages for compression for legs. She has had ulcers on right lower lateral leg and back of leg and left lateral lower leg since mid-August. These have improved over the last several weeks with UNNA boot treatment. She had seen OT approx. 2 years ago and was fitted with compression stockings but is unable to don these due to osteoarthritis and chronic back pain. She was also in the process of being prescribed lymphedema pumps but never received these devices. She has no current signs of infection. She denies fever and chills. Subjective Subjective Briseyda returns today for follow up of edema and ulcers of bilateral LE. Her right lower leg ulcer is healed. The left lower leg ulcer remains open but improved. She tolerated compression with 3M compression wraps with improvement in her leg measurements. She has been elevating her legs and walking. Denies fever, chills, pain or odor. Objective Data Objective Data Vital Signs: Vital Signs Temp Pulse Resp BP O2 Del Method 96.3 F L 62 18 141/67 H Room Air 10/18/23 10:03 10/18/23 10:03 10/18/23 10:10/18/23 10:10/11/23 09:17 Oxygen Delivery Method Room Air Weight: 107.048 kg Body Mass Index (BMI) 43.1 Physical Exam Const alert, oriented x3 and no apparent distress General Appearance: cooperative and comfortable Nutritional Appearance: obese HEENT normocephalic and head/scalp atraumatic Resp normal respiratory effort Effort and Inspection: able to speak in complete sentences Cardio regular rate and regular rhythm Extremity General Extremity: edema bilateral lower extremity Details: severe Skin General Skin Exam: crusts, hypertrophy, venous stasis, dermatitis and other nodular appearance of skin c/w severe lymphedema Wounds: wounds noted Wound Narrative: as in clinical panel Psych mental status grossly normal, thought process normal, cooperative and affect normal Debridement Note Debridement Note Wound debrided: right lateral LE Laterality: Right No debridement was completed: No debridement was completed today Post-Debridement Measurements and Additional Note: Post-Debridement Measurements/Treatment - Nurse 1 - General Ulcer Assessment Start: 10/11/23 09:17 Freq: Status: Active Protocol: BROWN Activity Type Activity Date Activity User E-sign Co-sign Detail Recorded Client Recorded Date Recorded By Document 10/11/23 09:17 KW d 10/11/23 09:33 KW Document 10/18/23 10:03 RB wound 10/18/23 10:07 RB 10/11/23 10/18/23 09:17 10:03 - Today's Visit Information Type of service Initial Visit Follow-up Visit (Physician/CARTRIDGE ASSEMBLER ) Arrival Mode Ambulatory Ambulatory Transfer Assistance None Patient Identification Verified (Name & Yes Yes ) Patient Requires Transmission-Based No Precautions Height and Weight Height 5 ft 2 in Weight 107.048 kg Weight in Pounds 236.0 lbs Weight Measurement Method Estimated by Patient Body Mass Index (BMI) 43.1 43.1 BMI Classification Obese Obese BSA - Yvon 2.05 Vital Signs Temperature (97.8 F-99.1 F) 96.3 F L Temperature Source Temporal Pulse Rate (60-100) 63 62 Pulse Location Monitor Monitor Respiratory Rate (12-18) 18 18 Respiratory rate source Observation Observation Oxygen Delivery Method Room Air Blood Pressure (90/60-120/80) 125/60 H 141/67 H Blood Pressure Mean (mm Hg) 81 91 Source Monitor Monitor Position Semi-Fowlers Semi-Fowlers Blood Pressure Location Left Arm Left Arm History Since Last Visit- (Skip if this is Patient's initial visit) Have you changed medications since your No last visit? Any new allergies or adverse reactions No Had a fall/change in ADL's that may No increase risk of falls Signs or symptoms of abuse and/or No neglect since last visit Have you been in the hospital since your No last visit? Has dressing in place as prescribed Yes Has compression in place as prescribed Yes Has offloadiing in place as prescribed No Experienced any changes in pain level or No management Left Footwear Regular Shoe Right Footwear Regular Shoe Pain Scale: 0-10 Numeric Is Patient Pain Free? Yes Yes Lower Extremity Assessment/ Foot Assessment/ Toe Nail Assessment Right -Posterior Tibial Palpable No -Posterior Tibial Doppler Inaudible -Dorsalis Pedis Palpable Yes -Dorsalis Pedis Doppler Monophasic -Extremity Color Hemosiderin -Hair Growth on Legs Yes -Hair Growth on Toes No -Temperature of Extremity Warm -Capillary Refill Greater than 3 Seconds -Dependent Rubor No -Blanched when Elevated No -Lipodermatosclerosis No -Other Deformity No -Prior Foot Ulcer No -Charcot Joint No -Prior Amputation No -Thick Yes -Discolored No -Deformed Yes -Improper Length & Hygeine Yes Left -Posterior Tibial Palpable No -Posterior Tibial Doppler Inaudible -Dorsalis Pedis Palpable Yes -Dorsalis Pedis Doppler Monophasic -Extremity Color Hemosiderin -Hair Growth on Legs Yes -Hair Growth on Toes No -Temperature of Extremity Warm -Capillary Refill Greater than 3 Seconds -Dependent Rubor No -Blanched when Elevated No -Lipodermatosclerosis No -Thick Yes -Discolored No -Deformed Yes -Improper Length & Hygeine Yes Neuropathy Assessment Feet - Top Side and Bottom <Entered> (a) Communication Assessment Preferred language Sami Afloat Cryptologic Manager Required No Able to Read Yes Able to Write Yes Communication Tools None Right Hearing Abillity Normal Left Hearing Abillity Normal Visual Assistive Devices None Functional Assessment Recent Decline in Ability to Perform Denies Any Declines Culture/Congregation/Paper Sample Clerk Cultural/Congregation Needs that may affect No Treatment Plan Would you allow our hospital dye worker to No meet you for the purpose of spiritual/ emotional support? Paper Sample Clerk to contact place of temple No Teaching: Wound Center *Welcome to the Wound Center -Person Taught Patient -Teaching Method Discussion -Response to teaching Verbalize understanding (a) 1 - + THROUGHOUT WC - Nurse 1 - General Ulcer Measurement Start: 10/11/23 09:17 Freq: Status: Active Protocol: Activity Type Activity Date Activity User E-sign Co-sign Detail Recorded Client Recorded Date Recorded By Document 10/11/23 09:17 KW d 10/11/23 09:33 KW Document 10/18/23 10:03 RB wound 10/18/23 10:07 RB 10/11/23 10/18/23 09:17 10:03 Wound Center Nurse 1 2. LLE lateral -Combined with other wound No No -Current Size (cm) - Length 0.1 0.1 -Current Size (cm) - Width 0.1 0.1 -Current Size (cm) - Depth 0.1 0.1 -Total Square Cm 0.01 0.01 -Photo Taken Yes -Tunneling No No -Undermining/Tunneling No No -Circular Undermining No No -Exudate Amt Large Small -Exudate Type Serosanguineous Serosanguineous -Wound Margin Distinct, Distinct, Outline Outline Attached Attached -Granulation Amt Medium (34-66%) Medium (34-66%) -Granulation Quality Reinholds Reinholds -Slough/Fibrin Yes Yes -Necrosis Amt Medium (34-66%) Medium (34-66%) -Necrotic Tissue Type Adherent Slough Adherent Slough -Structure Exposed N/A N/A -Texture (Lily-wound Skin Appearance) Assessed Assessed -Moisture (Lily-wound Skin Appearance) Assessed Assessed -Color (Lily-wound Skin Appearance) Hemosiderin Assessed, Staining Hemosiderin Staining -Temperature (Lily-wound Skin No Abnormality No Abnormality Appearance) (Pt Warm) (Pt Warm) -Tenderness on Palpation (Lily-wound No No Skin Appearance) -Ulcer Cleansing Wound Cleanser Wound Cleanser -Foul Odor after Cleansing No No -Anesthetic Used 5% Lidocaine 5% Lidocaine Gel Gel 1. RLE lateral -Combined with other wound No No -Current Size (cm) - Length 2.5 0.1 -Current Size (cm) - Width 2.5 0.1 -Current Size (cm) - Depth 0.1 0.1 -Total Square Cm 6.25 0.01 -Photo Taken Yes -Tunneling No No -Undermining/Tunneling No No -Circular Undermining No No -Exudate Amt Medium Small -Exudate Type Serosanguineous Serosanguineous -Wound Margin Distinct, Distinct, Outline Outline Attached Attached -Granulation Amt Medium (34-66%) Medium (34-66%) -Granulation Quality Reinholds Reinholds -Slough/Fibrin Yes Yes -Necrosis Amt Medium (34-66%) Medium (34-66%) -Necrotic Tissue Type Adherent Slough Adherent Slough -Structure Exposed N/A N/A -Texture (Lily-wound Skin Appearance) Assessed Assessed -Moisture (Lily-wound Skin Appearance) Assessed Assessed -Color (Lily-wound Skin Appearance) Assessed, Hemosiderin Hemosiderin Staining Staining -Temperature (Lily-wound Skin No Abnormality No Abnormality Appearance) (Pt Warm) (Pt Warm) -Tenderness on Palpation (Lily-wound No No Skin Appearance) -Ulcer Cleansing Wound Cleanser Wound Cleanser -Foul Odor after Cleansing No No -Anesthetic Used 5% Lidocaine 5% Lidocaine Gel Gel Lower Limb Edema Present Yes Yes Right Calf (cm) 51.6 47 Right Ankle (cm) 32 29.5 Left Calf (cm) 51 47 Left Ankle (cm) 31.5 28 - Nurse 2 - General Ulcer CM Notes Start: 10/11/23 09:17 Freq: Status: Active Protocol: Activity Type Activity Date Activity User E-sign Co-sign Detail Recorded Client Recorded Date Recorded By Document 10/11/23 09:46 GM 10/11/23 10:13 GM Document 10/18/23 10:15 GM 10/18/23 10:18 GM Edit Result 10/18/23 10:15 GM (1) 10/18/23 10:21 GM (1) 2. LLE lateral - Wound Comment(s) => not debrided, measurements are 0.3 x => 0.3 x 0.1 10/11/23 10/18/23 09:46 10:15 Wound Center Nurse 2 2. LLE lateral -Time 09:47 10:15 -Correct Patient Yes Yes -Correct Side, Site, Position Yes Yes -Wound/Ulcer Outcome Not Healed -Wound Comment(s) not debrided, measurements are 0.3 x 0.3 x 0.1 1. RLE lateral -Time 09:47 10:16 -Correct Patient Yes Yes -Correct Side, Site, Position Yes Yes -Wound/Ulcer Outcome Healed- Epithelialized Pain Scale: 0-10 Numeric Is Patient Pain Free? Yes Yes - Nurse 3 - General Ulcer D/C NN Start: 10/11/23 09:17 Freq: Status: Active Protocol: Activity Type Activity Date Activity User E-sign Co-sign Detail Recorded Client Recorded Date Recorded By Document 10/11/23 10:39 KW d 10/11/23 10:40 KW Document 10/18/23 10:33 KW ' 10/18/23 10:49 KW 10/11/23 10/18/23 10:39 10:33 Wound Care Center Nurse 3 2. LLE lateral -Primary Dressing Applied Aquacel Extra Promogran -Primary Dressing Covered/Secured with Dry Gauze & Dry Gauze, Roll Gauze, Secured with Secured with Tape Tape -Aquacel Extra 1 -Promogran 1 1. RLE lateral -Primary Dressing Covered/Secured with Dry Gauze & Roll Gauze, Secured with Tape BLE -Multi-Layered Wrap Application Multi-Layer Multi-Layer Comp - Bilat ($ Comp - Bilat ($ ) ) Pain Scale: 0-10 Numeric Is Patient Pain Free? Yes Yes WC - Visit Discharge Discharge Condition Stable Stable Ambulatory Status Ambulatory Ambulatory Transportation Private Auto Private Auto Accompanied by daughter Medication Reconcilliation completed & No No provided to patient/care provider Clinical Summary of Care Provided Yes Yes Additional Wound Wound debrided: left lateral LE Laterality: Left Operative Diagnosis: no debridement performed Assessment/Plan Assessment/Plan (1) Lymphedema: CODE(S): I89.0 - Lymphedema, not elsewhere classified (2) Venous ulcers of both lower extremities: CODE(S): I83.019 - Varicose veins of right lower extremity with ulcer of unspecified site; I83.029 - Varicose veins of left lower extremity with ulcer of unspecified site; L97.919 - Non-pressure chronic ulcer of unspecified part of right lower leg with unspecified severity; L97.929 - Non-pressure chronic ulcer of unspecified part of left lower leg with unspecified severity (3) Venous insufficiency of both lower extremities: CODE(S): I87.2 - Venous insufficiency (chronic) (peripheral) (4) Osteoarthritis of spine at multiple levels: CODE(S): M47.819 - Spondylosis without myelopathy or radiculopathy, site unspecified PLAN: Plan Evaluation performed today in clinic as annotated above. At home wound-care instructions: No debridement was performed due to high copay and minimal devitalized tissue/slough. 3M compression wraps were placed with Promogran over the ulcers to treat the ulcers and improve edema. Keep dressing clean and dry. She would also benefit from compression wraps such as Circaid or Farrow wraps for continued management of her lymphedema as well as lymphedema pumps for prevention of ulcers and progression of her lymphedema. She is unable to don traditional compression stockings due to osteoarthritis and chronic back pain and is unable to reach her ankles. Off-loading: The patient was instructed to avoid pressure and friction on the affected areas. Reposition every 2 hours at minimum. Avoid prolonged standing and/or dangling of legs. When seated, feet should be elevated at chest level. Frequent ambulation is encouraged. Diet: Patient encouraged to increase protein intake while taking caution to avoid high carbohydrate and/or sugar intake. Labs/cultures/imaging: Follow-up: Return in 1 week for wound care follow up. Return sooner or report to the emergency room should symptoms worsen, or new symptoms arise. Note: [employer] speech recognition office administration software was used to create portions of this document. Sound-alike and misspelled words, as well as other office administration errors may be contained in the documentation.
[2023-10-25 09:26] VITALS: BP 145/60; PULSE 50; RESP 18; TEMP 35.8; BMI 43.1
--- NOTE | 2023-10-25 12:46 | PN.PCM_ITS ---
History of Present Illness Date of Service: 10/25/23 Chief Complaint: lymphedema and ulcers of lower legs bilaterally History of Wound: Briseyda is a pleasant 73 yo woman that presents to the wound healing center today for evaluation and treatment of bilateral lower extremity lymphedema and ulcers. She was referred by her PCP, Dr. Ulrich. She has worsening lymphedema, which has been chronic and long-standing for several years, she is typically maintained on dual diuretic therapy including triamtere ne hydrochlorothiazide as well as furosemide with potassium. She reports of worsening of edema with seeping of fluid from lower legs and dry, hard skin which started in the beginning of August. She originally had been self-treating with Neosporin and Vaseline, washing with warm water. She was seen by her PCP on 09/24 and treated with UNNA boots weekly and prescribed Cephalexin 500 mg x 7 days for cellulitis until being seen today. She has difficulty with mobility due to joint pain, particularly in the knee, and breathlessness after short walks. Has been using GARRETT bandages for compression for legs. She has had ulcers on right lower lateral leg and back of leg and left lateral lower leg since mid- August. These have improved over the last several weeks with UNNA boot treatment. She had seen OT approx. 2 years ago and was fitted with compression stockings but is unable to don these due to osteoarthritis and chronic back pain. She was also in the process of being prescribed lymphedema pumps but never received these devices. She has no current signs of infection. She denies fever and chills. Subjective Subjective Briseyda returns today for follow up of edema and ulcers of bilateral LE. Her ulcers are healed and she tolerated compression with 3M compression wraps with improvement in her leg measurements. She has been elevating her legs and walking. She received Circaid compression wraps and brought those today to apply for compression. Denies fever, chills, pain or odor. Objective Data Objective Data Vital Signs: Vital Signs Temp Pulse Resp BP O2 Del Method 96.5 F L 50 L 18 145/60 H Room Air 10/25/23 09:26 10/25/23 09:26 10/25/23 09:26 10/25/23 09:26 10/25/23 09:26 Oxygen Delivery Method Room Air Weight: 107.048 kg Body Mass Index (BMI) 43.1 Physical Exam Const alert, oriented x3 and no apparent distress General Appearance: cooperative and comfortable Nutritional Appearance: obese HEENT normocephalic and head/scalp atraumatic Resp normal respiratory effort Effort and Inspection: able to speak in complete sentences Cardio regular rate and regular rhythm Extremity General Extremity: edema bilateral lower extremity Details: severe Skin General Skin Exam: crusts, hypertrophy, venous stasis, dermatitis and other nodular appearance of skin c/w severe lymphedema Wounds: wounds noted Wound Narrative: as in clinical panel Psych mental status grossly normal, thought process normal, cooperative and affect normal Debridement Note Debridement Note Wound debrided: left lateral LE ulcer No debridement was completed: No debridement was completed today Assessment/Plan Assessment/Plan (1) Lymphedema: CODE(S): I89.0 - Lymphedema, not elsewhere classified (2) Venous insufficiency of both lower extremities: CODE(S): I87.2 - Venous insufficiency (chronic) (peripheral) (3) Osteoarthritis of spine at multiple levels: CODE(S): M47.819 - Spondylosis without myelopathy or radiculopathy, site unspecified PLAN: Plan Evaluation performed today in clinic as annotated above. At home wound-care instructions: No debridement was performed due to her ulcer being healed. Circaid compression wraps were applied and demonstrated by staff to patient and her . Keep dressing clean and dry. She would also benefit from lymphedema pumps for prevention of ulcers and progression of her lymphedema. She is unable to don traditional compression stockings due to osteoarthritis and chronic back pain and is unable to reach her ankles. Off-loading: The patient was instructed to avoid pressure and friction on the affected areas. Reposition every 2 hours at minimum. Avoid prolonged standing and/or dangling of legs. When seated, feet should be elevated at chest level. Frequent ambulation is encouraged. Diet: Patient encouraged to increase protein intake while taking caution to avoid high carbohydrate and/or sugar intake. Labs/cultures/imaging: Follow-up: She will be discharged from treatment today. Return sooner or report to the emergency room should symptoms worsen, or new symptoms arise. Note: [employer] speech recognition acid bleacher software was used to create portions of this document. Sound-alike and misspelled words, as well as other acid bleacher errors may be contained in the documentation.
== END 2023-10-25 11:13 | disposition home or self-care (01) ==
LOC: WC 09:30
PROVIDERS: PCP Family Medicine; Referring Provider Family Medicine; Visit Provider Family Medicine
DX: I83.018 Varicose veins of right lower extremity with ulcer other part of lower leg (principal); L97.819 Non-pressure chronic ulcer of other part of right lower leg with unspecified severity; L97.929 Non-pressure chronic ulcer of unspecified part of left lower leg with unspecified severity; J43.9 Emphysema, unspecified; N18.32 Chronic kidney disease, stage 3b; M54.9 Dorsalgia, unspecified; I12.9 Hypertensive chronic kidney disease with stage 1 through stage 4 chronic kidney disease, or unspecified chronic kidney disease; I89.0 Lymphedema, not elsewhere classified; I25.10 Atherosclerotic heart disease of native coronary artery without angina pectoris; M47.819 Spondylosis without myelopathy or radiculopathy, site unspecified; G89.29 Other chronic pain; F17.200 Nicotine dependence, unspecified, uncomplicated; G47.33 Obstructive sleep apnea (adult) (pediatric); Z79.899 Other long term (current) drug therapy
CPT/HCPCS: 29581; 99203; 99213; G0463

== ENCOUNTER → 2023-11-06 | Outpatient (CLI) | payer MEDICARE, SELFPAY ==
--- NOTE | 2023-11-06 09:09 | RAD_ITS ---
STUDY: X-RAY - RIGHT KNEE REASON FOR EXAM: Female, 73 years old. PAIN IN KNEE TECHNIQUE: 4 view(s) of the knee. COMPARISON: None. FINDINGS: Normal visualized distal femur. Normal visualized proximal tibia and fibula. Normal proximal tibiofibular articulation. There is mild degenerative arthrosis of the medial femorotibial compartment. There is moderate degenerative arthrosis of the lateral femorotibial compartment with moderate joint space narrowing. There is moderate degenerative arthrosis of the patellofemoral articulation. The soft tissue structures are unremarkable. RAD/Knee 4 or More Views IMPRESSION: Degenerative arthrosis. Electronically Signed: Mahin Cutler MD at 9:12 EDT ,
[2023-11-06 10:06] LABS: Absolute Lymphocyte Count 1.55 X10^3/uL (0.83-4.51); Absolute Neutrophil Count 9.6 X10^3/uL (2.0-7.7); Basophil# 0.05 X10^3/uL; Basophil% 0.4 % (0-1); Eosinophils% 2.5 % (0-5); Hemoglobin 13.6 g/dL (12.0-15.0); Lymphocyte # 1.55 X10^3/ul (0.83-4.51); Lymphocyte % 12.7 % (19-41); Mean Corp Hgb Conc 31.6 g/dL (32-36); Mean Corpuscular Hgb 28.2 pg (27.0-32.0); Mean Platelet Vol. 10.9 fl (6.2-12.0); Monocyte# 0.62 X10^3/uL; Monocyte% 5.1 % (0-10); NRBC Flagged by Analyzer 0 % (0-5); Neutrophil # 9.59 X10^3/uL (2.7-7.7); Neutrophil % 78.7 % (47-70); Platelet Count 178 K/mm3 (150-450); RBC Distribution Width CV 16.1 % (11.6-14.6); RBC Distribution Width SD 52.7 fl (35.1-43.9); Red Blood Count 4.83 M/mm3 (4.2-5.4); White Blood Count 12.2 K/mm3 (4.4-11.0)
[2023-11-06 10:42] LABS: PTHIN 34.9 pg/mL (18.4-80.1)
[2023-11-06 10:59] LABS: ALB/GLOB Ratio 0.8 RATIO (0.9-2.4); AST(SGOT) 15 U/L (15-37); Alanine Aminotransfer ALT/SGPT 28 U/L (13-56); Albumin, Serum 3.3 g/dL (3.2-5.0); Alkaline Phosphatase 96 U/L (45-117); Anion Gap 8 (5-15); BUN 29 mg/dL (7-18); BUN/Creat Ratio 18.2 RATIO (10-20); Chloride 104 mmol/L (98-107); Cholesterol 129 mg/dL (200); Creatinine, Serum 1.59 mg/dL (0.55-1.02); EST Glomerular Filtration Rate 34 mL/min (>60); Est Glom Filt Rate - Afr Amer 41 mL/min (>60); Globulin 4.2 g/dL (2.2-4.2); Glucose 158 mg/dL (74-106); High Density Lipoprotein 48 mg/dL; Potassium 3.4 mmol/L (3.5-5.1); Protein, Total 7.5 g/dL (6.4-8.2); Sodium Level 138 mmol/L (136-145); Triglycerides 136 mg/dL; Very Low Density Lipoprotein 27 mg/dL (5-40)
[2023-11-06 11:41] LABS: Hemoglobin A1c 5.9 % (3.8-5.6)
== END | disposition home or self-care (01) ==
LOC: MTLAB 09:07
PROVIDERS: PCP Family Medicine; Referring Provider Family Medicine; Visit Provider Family Medicine
DX: I12.9 Hypertensive chronic kidney disease with stage 1 through stage 4 chronic kidney disease, or unspecified chronic kidney disease (principal); N18.32 Chronic kidney disease, stage 3b; M25.561 Pain in right knee; R73.01 Impaired fasting glucose
CPT/HCPCS: 36415; 73564; 80053; 80061; 82306; 83036; 83970; 85025

== ENCOUNTER 2024-01-03 09:00 | Outpatient (RCR) | payer MEDICARE, SELFPAY ==
--- NOTE | 2023-11-18 13:40 | HP.PTEVAL ---
Patient's Visit Information Visit Information Visit Information: JAGUAR GALAN is a 73 year old F referred to Physical Therapy by Dr. Branden Ulrich DO with a diagnosis of Right Knee Pain. Date of Evaluation: 11/18/23 Physical Therapist: Arlene Oliva DPT Visit Plan Frequency: 2x /Week Duration: 4 Weeks Plan: Pt to decide between land and aqua therapy to focus on LE and core strength/stabilization, proprioception, flex and muscular endurance Encouraged movement Subjective Subjective: Right knee pain- 6 weeks- she has lymphedema- boots a week at at time- venous ulcers- wound center 4 visits- legs wrapped up- the last visit she got these current wraps started 2 weeks ago-she just got her auto pump. She started having knee pain with the first set of wraps and thinking that maybe she was having a clogged duct and was shown how to massage it. If she moves it the wrong it cracks loudly and has a little bit of pain. She had recent x-rays which showed moderate OA in tricompartments. They gave her meds which were not helpful- they are going to start her on a new mediation and see if that helps. The pain in the knee is on the distal medial aspect of the knee and the lateral knee. Does not radiate- if she moves the wrong way its a sharp pain- it can also be achy. Sleep: not disturbed. When she wakes up in the AM once she gets going she can walk [facility] decent- she ambulates with a quad cane and has only been using it since the knee pain started. Prior to the knee hurting 6 weeks ago she was more active- she was able to do stairs- 3-4, walk but does get short of breath and increased heart rate. Since COVID she does not leave the house very much. She sits a lot during the day. Worst: 10/10 Agg: movement Eases: sitting Best: 0/10. No N/T. PMHx/Meds: see list in chart. Objective Objective: Posture: forward head, rounded shoulders- can correct but does not maintain Gait: short distances only 15 feet- short stride length- quad cane Observation: wraps on bilateral LE for lymphedema to knees ROM: 10 degrees from full to 115 degrees right knee Strength: Core: poor Hip: 3+/5 Knee: 3+/5, Ankle: 4/5 Flex: HS: severe, Gastroc: severe Palpation: tender along medial and lateral joint line Balance/Special Test Scores Lower Extremity Functional Score: 4 Goals Goal 1:: Patient will be I with HEP and progression Goal Time Frame: 4-6 Weeks Goal 2:: Patient will ambulate >150 feet with LRD and normalized gait pattern Goal Time Frame: 4-6 Weeks Goal 3:: Patient will asc/desc 8 stairs recip with 1 HR Goal Time Frame: 4-6 Weeks Goal 4:: Patient will report 80% improvement Goal Time Frame: 4-6 Weeks Rehabilitation Potential Physical Therapy Diagnosis: Patient presents with hypomobility- she has decreased ROM, LE and core strength/stabilization, flex, proprioception, and muscular endurance leading to abnormal gait and increased pain with ADL's Rehabilitation Potential: Fair Anticipated Interventions Patient/Client Instruction: Educate patient on: Benefits of Fitness Program Therapeutic Exercise to Include: Strength training, Endurance training, Balance training, Coordination, Agility training, Body mechanics, Postural training, Flexibilty training, Gait and locomotor training, Neuromotor development, In an aquatic setting, Passive ROM, Active ROM, Dynamic Lumbar Stabilization and Scapular Strength/Stabilization For the Purpose of:: To improve muscle performance and motor function Text: Thank you for the opportunity to evaluate your patient. For Medicare and Medicare HMO plans, please review the plan of care and approve it. It will need to be FAXED BACK to us at [phone] for Medicare purposes. For Medicare only, by signing this I certify the plan of care. Please let me know if there are questions or concerns regarding this plan of care. Physician Signature: Date:
--- NOTE | 2024-02-21 09:25 | HP.PTDCSUM ---
Discharge Summary D/C summary: It has been my pleasure to treat JAGUAR GALAN referred by Dr. Branden Ulrich DO, with the diagnosis of Right Knee Pain for a total of 9 visit(s). Discharge Date: Please see the following information for a summary of their discharge status. Subjective Subjective: Unable to put full weight min walk up to 40 ft with QC at home Pain R knee: Pain Intensity (Out of 10): 7 Overall Improvement % Improvement: 20 Objective Objective/Function: POSTURE: mild forward posture GAIT: Ambulated with QC 10 ft with CGA Ambulated with fww 20 ft with less pain AROM: 10-115 supine knee flexion Goals Goal 1:: Patient will be I with HEP and progression Goal 2:: Patient will ambulate >150 feet with LRD and normalized gait pattern Goal 3:: Patient will asc/desc 8 stairs recip with 1 HR Goal 4:: Patient will report 80% improvement Plan Plan: RTD maybe Ortho consult recommend D/C Information d/c sentence: If there are questions or concerns regarding this patient's physical therapy, please feel free to call me at [phone]. Thank you for the referral of this patient. Sincerely, Arlene Oliva, NANDOT Balance/Gait/Functional tests Balance/Special Test Scores Lower Extremity Functional Score: 4 Improvement % Improvement: 20
== END 2024-01-03 19:00 | disposition home or self-care (01) ==
LOC: PT 09:00
PROVIDERS: PCP Family Medicine; Referring Provider Family Medicine; Visit Provider Family Medicine
DX: M25.561 Pain in right knee (principal)
CPT/HCPCS: 97110; 97162; 97530

== ENCOUNTER → 2024-02-14 | Outpatient (CLI) | payer MEDICARE, SELFPAY ==
[2024-02-14 12:35] LABS: Anion Gap 4 (5-15); BUN 17 mg/dL (7-18); BUN/Creat Ratio 12.2 RATIO (10-20); Calcium,Total 9.8 mg/dL (8.5-10.1); Chloride 106 mmol/L (98-107); Creatinine, Serum 1.39 mg/dL (0.55-1.02); EST Glomerular Filtration Rate 39 mL/min (>60); Est Glom Filt Rate - Afr Amer 47 mL/min (>60); Glucose 125 mg/dL (74-106); Potassium 3.6 mmol/L (3.5-5.1); Sodium Level 139 mmol/L (136-145)
[2024-02-14 12:51] LABS: Vitamin D,25 Hydroxy 49.1 ng/mL
== END | disposition home or self-care (01) ==
LOC: BFHLAB 10:01
PROVIDERS: PCP Family Medicine; Visit Provider Family Medicine
DX: T45.2X1A Poisoning by vitamins, accidental (unintentional), initial encounter (principal); N18.32 Chronic kidney disease, stage 3b
CPT/HCPCS: 36415; 80048; 82306

== ENCOUNTER → 2024-08-17 | Outpatient (CLI) | payer MEDICARE, SELFPAY ==
[2024-08-17 12:19] LABS: Basophil# 0.04 X10^3/uL; Basophil% 0.4 % (0-1); Eosinophil# 0.16 X10^3/uL; Eosinophils% 1.8 % (0-5); Hematocrit 39.8 % (37-47); Hemoglobin 12.9 g/dL (12.0-15.0); Lymphocyte % 13.5 % (19-41); Mean Corp Hgb Conc 32.4 g/dL (32-36); Mean Corpuscular Volume 92.6 fL (81-99); Mean Platelet Vol. 12.2 fl (6.2-12.0); Monocyte# 0.44 X10^3/uL; Monocyte% 4.9 % (0-10); NRBC Flagged by Analyzer 0 % (0-5); Neutrophil # 7.02 X10^3/uL (2.7-7.7); Platelet Count 194 K/mm3 (150-450); RBC Distribution Width CV 15.4 % (11.6-14.6); RBC Distribution Width SD 52.2 fl (35.1-43.9); White Blood Count 8.9 K/mm3 (4.4-11.0)
[2024-08-17 13:13] LABS: ALB/GLOB Ratio 1.2 RATIO (0.9-2.4); AST(SGOT) 16 U/L (<=31); Alanine Aminotransfer ALT/SGPT 14 U/L (<=34); Albumin, Serum 3.8 g/dL (3.4-4.8); Alkaline Phosphatase 103 U/L (35-104); Anion Gap 14 (5-15); BUN 24 mg/dL (4-19); BUN/Creat Ratio 14.2 RATIO (10-20); Calcium,Total 9.5 mg/dL (7.6-11.0); Carbon Dioxide 24.9 mmol/L (21.0-32.0); Chloride 101 mmol/L (98-108); Creatinine, Serum 1.66 mg/dL (0.70-1.20); EST Glomerular Filtration Rate 32 (>60); Globulin 3.2 g/dL (2.2-4.2); Glucose 138 mg/dL (70-99); Potassium 3.5 mmol/L (3.3-5.1); Sodium Level 139 mmol/L (133-145); Total Bilirubin 0.44 mg/dL (0.00-1.30)
[2024-08-17 13:19] LABS: PTHIN 83 pg/mL (11-61)
[2024-08-17 13:47] LABS: Hemoglobin A1c 6.2 % (<=5.6)
== END | disposition home or self-care (01) ==
LOC: BFHLAB 08:37
PROVIDERS: PCP Family Medicine; Visit Provider Family Medicine
DX: N18.32 Chronic kidney disease, stage 3b (principal); R73.01 Impaired fasting glucose
CPT/HCPCS: 36415; 80053; 83036; 83970; 85025

== ENCOUNTER → 2025-02-15 | Outpatient (CLI) | payer MEDICARE, SELFPAY ==
[2025-02-15 10:34] LABS: Hematocrit 39.2 % (37-47); Hemoglobin 12.5 g/dL (12.0-15.0); Immature Granulocytes Count 0.050 X10^3/uL (0.0-0.0); Mean Corp Hgb Conc 31.9 g/dL (32-36); Mean Corpuscular Volume 88.5 fL (81-99); Mean Platelet Vol. 11.9 fl (6.2-12.0); NRBC Flagged by Analyzer 0 % (0-5); Platelet Count 188 K/mm3 (150-450); RBC Distribution Width CV 15.9 % (11.6-14.6); RBC Distribution Width SD 51.3 fl (35.1-43.9); Red Blood Count 4.43 M/mm3 (4.2-5.4); White Blood Count 8.6 K/mm3 (4.4-11.0)
[2025-02-15 10:52] LABS: AST(SGOT) 14 U/L (<=31); Alanine Aminotransfer ALT/SGPT 9 U/L (<=34); Albumin, Serum 3.9 g/dL (3.4-4.8); Alkaline Phosphatase 111 U/L (35-104); Anion Gap 11 (5-15); BUN 12 mg/dL (4-19); BUN/Creat Ratio 10.1 RATIO (10-20); Calcium,Total 9.5 mg/dL (7.6-11.0); Carbon Dioxide 27.3 mmol/L (21.0-32.0); Chloride 102 mmol/L (98-108); Cholesterol 118 mg/dL (<=200); Globulin 3.2 g/dL (2.2-4.2); Glucose 121 mg/dL (70-99); Low Density Lipoprotein Calc. 50 mg/dL; Potassium 3.5 mmol/L (3.3-5.1); Triglycerides 102 mg/dL; Very Low Density Lipoprotein 20 mg/dL (5-40); cholesterol:hdl ratio screen 2.41
[2025-02-15 11:22] LABS: PTHIN 50 pg/mL (11-61)
== END | disposition home or self-care (01) ==
LOC: MTLAB 09:05
PROVIDERS: PCP Family Medicine; Referring Provider Family Medicine; Visit Provider Family Medicine
DX: I25.10 Atherosclerotic heart disease of native coronary artery without angina pectoris (principal); N18.32 Chronic kidney disease, stage 3b; I12.9 Hypertensive chronic kidney disease with stage 1 through stage 4 chronic kidney disease, or unspecified chronic kidney disease; R73.03 Prediabetes
CPT/HCPCS: 36415; 80053; 80061; 83036; 83970; 85025